=== PATIENT | male | born 1985 | race American Indian/Alaskan Native ===

== ENCOUNTER 2018-09-18 20:58 | Emergency (ER) | payer OTHER ==
--- NOTE | 2018-09-18 21:06 | Event Note ---
ED Screening Note Date of service: 09/18/18 Time: 21:02 ED Screening Note: This is a 32 y.o. M. that presents to the ER with lacerations to right 2nd & 3rd fingers. Tetanus UTD This initial assessment/diagnostic orders/clinical plan/treatment(s) is/are subject to change based on patients health status, clinical progression and re- assessment by fellow clinical providers in the ED. Further treatment and workup at subsequent clinical providers discretion. Patient/guardian urged not to elope from the ED as their condition may be serious if not clinically assessed and managed. Initial orders include: XR of hand
[2018-09-18] MEDS ORDERED: TORADOL IM ONE (21:47)
[2018-09-18] MEDS ORDERED: AUGMENTIN 875 MG PO ONE (21:47)
[2018-09-18] MEDS ORDERED: XYLOCAINE 1% 20 mL INFILTRATI ONE (21:53)
--- NOTE | 2018-09-18 22:12 | XRay Report ---
INDICATION / CLINICAL INFORMATION: laceration 2nd 3rd, r/o fracture COMPARISON: None available. FINDINGS: BONES / JOINT(S): Fracture of the proximal phalanx of the second digit is present. The remaining bone s are intact. No evidence of a dislocation SOFT TISSUES: Edema ADDITIONAL FINDINGS: None. Impression: Fracture proximal phalanx second digit Signer Name: Chase Guerrero MD Signed: 09/18/2018 10:07 PM Workstation Name: [id number]
--- NOTE | 2018-09-19 00:28 | XRay Report ---
RIGHT HAND 3 VIEWS INDICATION / CLINICAL INFORMATION: Injury. COMPARISON: None available. FINDINGS: Moderately displaced fracture of the proximal phalanx of the index finger. No other significant skele filemon abnormality Signer Name: Jet Ac MD FACMarlene Signed: 09/19/2018 12:23 AM Workstation Name: [id number]
--- NOTE | 2018-09-19 00:57 | Emergency Department Report ---
ED Upper Extremity Inj HPI - General Chief Complaint: Wound/Laceration Stated Complaint: RIGHT HAND INJURY Time Seen by Provider: 09/18/18 21:00 Source: patient Mode of arrival: Ambulatory Limitations: No Limitations - History of Present Illness Initial Comments: Patient reports that a garage door slammed onto his right 2nd digit today. 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 Reports last Tetanus shot this year. Denies drugs/alcohol. Complaint: Injury to:: right, finger (2nd digit) -: hour(s) Other Extremity Injury: Fingers: Right (2nd digit) Other Injuries: none Handedness: right Severity scale (0 -10): 2 Improves With: immobilization Worsens With: movement of extremity Context: direct blow Associated Symptoms: denies other symptoms Treatments Prior to Arrival: bandage - Related Data Allergies Allergy/AdvReac Type Severity Reaction Status Date / Time No Known Allergies Allergy Unverified 09/18/18 21:05 ED Review of Systems ROS: Stated complaint: RIGHT HAND INJURY Other details as noted in HPI Other: GENERAL: No weight change, fatigue, weakness, fever, chills, or night sweats SKIN: No changes in skin or hair, no itching, no rashes, no jaundice HEAD: No trauma, headache, or visual changes EYES: No blurriness, tearing, itching, acute visual loss, conjunctival discoloration, or scleral icterus EARS: No hearing loss, tinnitus, vertigo, or earache NOSE: No rhinorrhea, stuffiness, sneezing, itching, or epistaxis MOUTH: No bleeding gums, hoarseness, sore throat, or swelling CARDIAC: No new murmur, chest pain, palpitations, dyspnea on exertion, orthopnea, PND, or edema RESPIRATORY: No shortness of breath, wheeze, cough, sputum production, hemoptysis, pneumonia, asthma, bronchitis, or emphysema GI: No change in appetite, nausea, vomiting, dysphagia, change in bowel frequency, diarrhea, constipation, bleeding, hematemesis, melena, hematochezia, or abdominal pain URINARY: No frequency, urgency, polyuria, dysuria, hematuria, or incontinence MUSCULOSKELETAL: Right 2nd digit laceartion and pain. NEUROLOGIC: No loss of sensation, numbness, tingling, tremors, weakness, paralysis, seizures HEMATOLOGIC: No anemia, easy bruising, bleeding, petechiae, or purpura ENDOCRINE: No hot or cold intolerance, sweating, polyuria, polydipsia or, polyphagia no thyroid problems PSYCHIATRIC: No change in mood, no anxiety, no depression ED Past Medical Hx - Past Medical History Previous Medical History?: No - Surgical History Past Surgical History?: No - Social History Smoking Status: Current Every Day Smoker Substance Use Type: Alcohol ED Physical Exam - General Limitations: No Limitations - Other Other exam information: GENERAL: Patient in no acute distress HEAD: Normocephalic, atraumatic EYES: PERRLA, EOM intact, no scleral icterus, no papilledema, no conjunctival hemorrhage, visual nguyen and acuity wnl, NOSE: No tenderness, discharge, sinus tenderness MOUTH: No erythema, bleeding, exudate HEART: pulses are symmetric LUNGS: No respiratory distress MUSCULOSKELETAL: Right second digit laceration approximately 2 cm over dosal surface proximal phalanx with exposed tendon. Right 2nd PIP flexion, patient unable to extend active at right second PIP. Patient can extend at right second MCP. Lacreation dorsal surface of hand approximately 3 cm. Mild bleeding. NEUROLOGIC: GCS 15, Alert and Oriented x3, Cranial nerves intact, normal sensation, normal gait, no cerebellar deficit PSYCHIATRIC: No homicidal or suicidal ideation, no anxiety, no depression, no hallucinations ED Course Vital Signs 09/18/18 09/18/18 09/19/18 21:03 23:45 00:00 Temperature 98 F Pulse Rate 70 66 65 Respiratory 18 Rate Blood Pressure 138/108 Blood Pressure 145/69 153/75 [Left] O2 Sat by Pulse 98 Oximetry 09/19/18 09/19/18 00:15 00:45 Temperature Pulse Rate 70 64 Respiratory Rate Blood Pressure Blood Pressure 130/77 108/66 [Left] O2 Sat by Pulse Oximetry ED Medical Decision Making - Radiology Data Radiology results: report reviewed, image reviewed - Medical Decision Making At 2150 [address]o ortho call back updated with exam findings. Request place couple loose sutures, extend finger and place in finger splint and arm sling. Follow up in the office upon discharge from the ER. At 2254 Dr. John orthopedic surgery updated right 2nd PIP flexed and patient unable to extend right 2nd finger. Request send pictures of xray to [phone]. At 2302 Dr[address] John. orthopedic surgery reports reviewed xray. Reports dislocation at right 2nd PIP and possible volar plate stuck in joint preventing reduction. Request transfer to hand surgery. At 2310 Dr. Destiney Deutsch hand surgery call back. Request send xray images to [phone]. At [address]18 Dr. Cabello call back. Request orthopedic surgery at [facility] evaluate the patient first before hand surgery recommendations. Request repeat hand xray for better lateral view right 2nd PIP. At 2341 Dr. John orthopedic surgery reports he does not operate on hands. Request contact [facility] [place] [facility] hand surgery for recommendations. Obvious dislocation on xray. At 2355 Dr Cabello request repeat xr images and call back if dislocated. At 0028 Dr. Cabello received repeat xray images. Refuses transfer at this time. At 0041 Patient comfortable. Updated withr results. Dr. Mejía trauma surgery [facility] call back updated with results. Request consult ortho for recommendations. Dr. Quinones orthopedic surgery updated and accepts transfer to [facility] ER for evaluation. Dr. Mejía accepting physician. Critical care attestation.: If time is entered above; I have spent that time in minutes in the direct care of this critically ill patient, excluding procedure time. ED Disposition Clinical Impression: Open fracture Dislocated finger Qualifiers: Encounter type: initial encounter Qualified Code(s): S63.259A - Unspecified dislocation of unspecified finger, initial encounter Disposition: DC/TX-70 ANOTHER TYPE HLTHCARE Is pt being admited?: No Condition: Stable Referrals: KASH PRATT MD [Primary Care Provider] - 3-5 Days Time of Disposition: 00:57
[2018-09-19] MEDS ORDERED: HABITROL TD ONE (01:06)
[2018-09-19 01:13] VITALS: BP 108/66
== END 2018-09-19 02:15 | disposition other institution (70) ==
LOC: ED 20:58
DX: S62.610B Displaced fracture of proximal phalanx of right index finger, initial encounter for open fracture (principal); F17.200 Nicotine dependence, unspecified, uncomplicated; W23.0XXA Caught, crushed, jammed, or pinched between moving objects, initial encounter; Y93.89 Activity, other specified; Y92.89 Other specified places as the place of occurrence of the external cause; Y99.8 Other external cause status
CPT/HCPCS: 73130; 96372; 99285; J1885